=== PATIENT | male | born 1985 | race African-American/Black ===

== ENCOUNTER 2018-01-11 16:34 | Emergency (ER) | payer OTHER ==
[~2018-01-11] VITALS: Ht 175.3 cm; Wt 90.7 kg
[2018-01-11 16:51] LABS: URINE BILIRUBIN NEGATIVE (Negative); URINE BLOOD NEGATIVE (Negative); URINE CLARITY CLEAR; URINE COLOR YELLOW; URINE GLUCOSE-RANDOM* NEGATIVE (Negative); URINE KETONES TRACE (Negative); URINE LEUKOCYTES-REFLEX NEGATIVE (Negative); URINE NITRITE-REFLEX NEGATIVE (Negative); URINE PROTEIN (DIPSTICK) NEGATIVE (Negative); URINE UROBILINOGEN 0.2 E.U./dl (0.2-1.0)
[2018-01-11] MEDS ORDERED: TESSALON PERLE100 MG PO (16:55)
[2018-01-11] MEDS ORDERED: PROVENTIL HFA6.7 G1 INH (16:55)
[2018-01-11] MEDS ORDERED: MEDROLDOSEPACK PO (16:55)
== END 2018-01-11 17:23 | disposition home or self-care (01) ==
LOC: ER 16:34
PROVIDERS: Physician Assistant
DX: Z20.2 Contact with and (suspected) exposure to infections with a predominantly sexual mode of transmission (principal); J20.9 Acute bronchitis, unspecified; J45.909 Unspecified asthma, uncomplicated